=== PATIENT | female | born 1970 | race Caucasian/White ===

== ENCOUNTER 2021-04-04 04:02 | Emergency (ER) | payer SELFPAY ==
[2021-04-04 04:05] VITALS: BP 149/93; PULSE 97; RESP 20; TEMP 36.7; O2SAT 99
--- NOTE | 2021-04-04 05:09 | PC.NURSE ---
Patient requested the PCP physician list. Patient was given list and stated she will call them in the morning for the referral. Patient stated she wants to leave and is going home. Patient ambulated out of the ED with a steady gait with belongings in hand.
== END 2021-04-05 03:48 | disposition left against medical advice (07) ==
LOC: ANHED 05:17
DX: M25.532 Pain in left wrist (principal)
CPT/HCPCS: 99199